=== PATIENT | male | born 1955 | race Caucasian/White ===

== ENCOUNTER 2018-12-01 17:53 | Inpatient (IN) ==
--- NOTE | 2018-12-01 18:15 | Emergency Department Note ---
Disposition Clinical Impression: Colitis, Elevated liver enzymes, Increased ammonia level Abdominal pain Qualifiers: Abdominal location: generalized Qualified Code(s): R10.84 - Generalized abdominal pain Disposition: Admitted As Inpatient Condition: Good [facility]: [facility]Primary Care Provider[facility] - Forms: ED Satisfaction Letter, Work/School Release Abdominal Pain HPI - General Chief Complaint: ED Abdominal Pain Stated Complaint: abd pain Time Seen by Provider: 12/01/18 18:12 Source: patient, EMS Nursing Notes Reviewed: Yes Vital Signs Reviewed: Yes - History of Present Illness HPI Narrative: 63-year-old male presents emergency department with concern for periumbilical to right upper quadrant abdominal pain starting at noon today. [facility] was [facility] at the [facility] CT scan of abdomen and pelvis which revealed inflammatory stranding within the fat in the right lower quadrant surrounding the ascending colon and expected location of the cecum. The terminal ileum was identified but the appendix was not. There is an area of gas and fluid collection measuring 5.7 x 4.8 x 6.2 cm at the expected location of the cecum and appendix. No free air was identified. Patient was sent here for further management. Patient states that the pain is not going anywhere. It is achy in nature. He has had episodes of vomiting associated with it. Patient is a chronic alcoholic. He does report been streaking 2 days ago. Patient also reports having nonbloody diarrhea today as well. He has had 3 episodes. Pain Scale: 0 - Related Data Home Medications Medication Instructions Recorded Confirmed Unable To Obtain [Unable to Obtain] 09/04/18 09/04/18 Allergies Allergy/AdvReac Type Severity Reaction Status Date / Time No Known Allergies Allergy Verified 09/04/18 01:30 All systems ED: reviewed and negative except as stated. Review of Systems: As Per HPI Constitutional: Denies: fever Cardiovascular: Denies: chest pain Respiratory: Denies: cough, dyspnea Gastrointestinal: Reports: abdominal pain, nausea, vomiting, diarrhea. Denies: melena, hematochezia Genitourinary: Denies: dysuria Musculoskeletal: Denies: back pain Abdominal Pain PMH - Past Medical History Medical history: Reports: COPD, diabetes, hyperlipidemia, hypertension Male Surgical History: Reports: herniorrhaphy, orthopedic, other, Tonsillectomy, other Psychiatric history: Reports: anxiety, depression - Social History Smoking status: Current some day smoker Alcohol use: Reports: recent Drug use: Reports: none Physical Exam - General Limitations: no limitations General appearance: alert - Head Head exam: normocephalic - Eye Eye exam: Present: EOMI. Absent: scleral icterus - ENT ENT exam: mucous membranes moist - Neck Neck exam: Present: trachea midline - Chest Chest inspection: Present: symmetric chest wall rise - Respiratory Respiratory exam: Present: normal lung sounds bilaterally. Absent: respiratory distress, accessory muscle use - Cardiovascular Cardiovascular exam: Present: normal rhythm, tachycardia, normal heart sounds - Abdominal Exam Abdominal exam: Present: soft, tenderness, rigidity. Absent: distention, guarding, rebound - Extremities Exam Extremities exam: Present: normal capillary refill - Back Exam Back exam: Present: full ROM - Neurological Exam Neurological exam: Present: alert, oriented X3 - Psychiatric Psychiatric exam: Present: normal affect, normal mood - Skin Skin exam: Present: warm, dry Course - Reevaluation(s) Reevaluation #1: Patient requesting further pain medication as well as nausea medication. Patient continues to be mildly tachycardic at 103. Patient with mildly elevated lactic acid. Patient will undergo further repeat lactate. Patient receiving further fluids. Patient will undergo admission for colitis. Repeat CT scan does not show any evidence of appendicitis or abscess. - Consultations Consultation #1: Discussed with Dr. Marie. Patient does have evidence of colitis. Patient does not have a specific hepatic panel that appears to have been ordered. This will be added. We will also had pneumonia. Patient does have a normal lipase, amylase, INR. Patient was placed on antibiotics. Patient continues to receive fluids. Patient will be admitted for further management of colitis. On follow-up of requested labs and addition of hepatic panel as it was not initially seen are documented in the chart does show an elevated bilirubin as well as an elevated ammonia level. Patient with previous care at the [facility] for cirrhosis. Lactulose given. There are no old labs for comparison. Patient's gallbladder on CT scan is normal and the patient's pain is lower abdominal pain around the level of the umbilicus and not related to right upper quadrant tenderness and does not have Chery sign. Consultation #2: Discussed with radiology in regards to not specifically addressing appendicitis. The patient does not have a visualized appendix on either CT scan. Patient does have significant colitis. With no significant weight dilated or inflamed appendix the patient does not have an acute appendicitis. Vital Signs Temperature 98.2 F 12/01/18 17:56 Pulse Rate 106 12/01/18 17:56 Respiratory Rate 16 12/01/18 17:56 Blood Pressure 165/90 12/01/18 17:56 O2 Sat by Pulse Oximetry 99 12/01/18 17:56 Temperature 98.2 F 12/01/18 17:56 Pulse Rate 101 12/01/18 22:22 Respiratory Rate 18 12/01/18 22:22 Blood Pressure 151/86 12/01/18 22:22 O2 Sat by Pulse Oximetry 98 12/01/18 22:22 Oxygen Delivery Oxygen Delivery Room Air Abdominal Pain - MDM Narrative Medical decision making narrative: 63-year-old male with concern for possibility of appendicitis, versus colitis, appendiceal abscess just emergency department from the [facility]. We are obtaining a CT scan of abdomen and pelvis with IV and oral contrast per request from radiologist. We are empirically giving Zosyn. Patient is elevated lactic acid of 2.3. We have given a liter of fluids as well. We have obtained blood cultures. Patient was given IV cefotaxime at the outside facility. Patient has elevated white blood cell count of 16.2. Hemoglobin 17.3. Troponin was negative. Creatinine function was normal at 1.07. GFR was greater than 60. No ischemic ST changes on the ECG. - Medical Records Medical records reviewed: Yes I reviewed the patient's medical records. - Lab Data Lab results reviewed: Yes I reviewed the patient's lab results. Lab Results 12/01/18 12/01/18 12/01/18 Range/Units 18:50 21:57 21:57 Lactic Acid 2.3 H (0.5-2.2) mmol/L Total Bilirubin 2.3 H (0.3-1.0) mg/dL Direct Bilirubin 0.5 H (0.0-0.2) mg/dL Indirect Bilirubin 1.8 H (0.0-1.2) mg/dL AST 21 (13-39) Units/L ALT 17 (7-52) Units/L Alkaline Phosphatase 52 (34-104) Units/L Ammonia 142 H (16-53) mcmol/L Serum Total Protein 6.2 L (6.4-8.9) g/dL Albumin 3.4 L (3.5-5.7) g/dL Globulin 2.8 (2.4-3.5) g/dL Albumin/Globulin Ratio 1.2 (1.1-2.2) 12/01/18 Range/Units 21:57 Lactic Acid 1.4 (0.5-2.2) mmol/L Total Bilirubin (0.3-1.0) mg/dL Direct Bilirubin (0.0-0.2) mg/dL Indirect Bilirubin (0.0-1.2) mg/dL AST (13-39) Units/L ALT (7-52) Units/L Alkaline Phosphatase (34-104) Units/L Ammonia (16-53) mcmol/L Serum Total Protein (6.4-8.9) g/dL Albumin (3.5-5.7) g/dL Globulin (2.4-3.5) g/dL Albumin/Globulin Ratio (1.1-2.2) - Radiology Data Radiology results reviewed: Yes I reviewed the patient's radiology results. Abdomen/Pelvis CT 12/01/18 20:45 IMPRESSION: 1. Generalized colonic wall edema and thickening with mild surrounding inflammatory change representing nonspecific colitis. 2. Cirrhosis with splenomegaly and features of portal hypertension. 3. Hepatic cyst or hemangioma. 4. Diverticulosis. 5. Prostatic enlargement. D/ / 12/01/2018 21:17:46 Curtis Frances MD / [email or web address] Interpreting Provider: Curtis Frances MD - EKG Data EKG attestation: Yes I reviewed and interpreted this EKG. EKG results narrative: 15:20 Ventricular rate 100 bpm, ME interval 148 ms, QRS church 78 ms, QT 390 ms, axis deviation. No ischemic ST changes noted on this electrical ECG. Attestation Statement - Attestation Attestation: Resident Attestation: I examined this patient and my medical decision making was reviewed with the Resident Physician. I agree with the documented findings, disposition and treatment plan as described except to the extent set forth below. We independently had [id number] contact with the patient. Patient presenting from the [facility] for evaluation of abnormal CAT scan of possible appendicitis with associated abscess. Patient states he was drinking over the weekend and thought he might have pancreatitis. Patient with initial labs drawn at the [facility]. Patient will require CT with IV and oral contrast further delineate. Patient's abdominal pain is right-sided in nature approximately periumbilical height. No associated rebound or guarding. Patient CT scan with significant colitis without abscess. Discussed with radiology and concern to previous CAT scan comparison and no appendix is visualized which makes this very unlikely. No associated abscess is been seen. Patient does have significant colitis. Given the elevated white count and continued tachycardia after a liter of fluids as well as mildly elevated lactic acid, the patient will be admitted for further management.
[2018-12-01] MEDS ORDERED: Piperacillin/Tazobactam 3.375 GM in Water for inj. (sterile) 20 ML 20 ML IVP ONE (18:24)
[2018-12-01] MEDS ORDERED: Isovue-370 500 ML BOTTLE IVP ONE (18:27)
[2018-12-01] MEDS ORDERED: Isovue-370 500 ML BOTTLE PO ONE (18:46)
[2018-12-01] MEDS ORDERED: 0.9 % Sodium Chloride 1,000 ML IVC ONE (20:43)
[2018-12-01] MEDS ORDERED: MORPHINE SUL Oral CONC 10 MG/0.5 ML ORAL.SYG SL PRN (21:40)
[2018-12-01] MEDS ORDERED: Ondansetron 4 MG/2 ML VIAL IVP ONE (21:41)
[2018-12-01 22:27] LABS: Albumin 3.4 g/dL (3.5-5.7); Albumin/Globulin Ratio 1.2 (1.1-2.2); Bilirubin,Direct 0.5 mg/dL (0.0-0.2); Bilirubin,Indirect 1.8 mg/dL (0.0-1.2); Bilirubin,Total 2.3 mg/dL (0.3-1.0); Globulin 2.8 g/dL (2.4-3.5); Total Protein 6.2 g/dL (6.4-8.9)
[2018-12-01] MEDS ORDERED: Lactulose Oral Soln 20 GM/30 ML UDC PO ONE (22:46)
[2018-12-02] MEDS ORDERED: *HR* LORazepam 2 MG/ML VIAL IVP PRN (03:18)
[2018-12-02] MEDS ORDERED: Naloxone 0.4 MG/ML INJ IVP PRN (03:18)
[2018-12-02] MEDS ORDERED: Ondansetron 4 MG/2 ML VIAL IVP PRN (03:18)
[2018-12-02] MEDS ORDERED: D5% in Water 1,000 ML IVC PRN (03:18)
[2018-12-02] MEDS ORDERED: traMADol 50 MG TABLET PO PRN (03:18)
[2018-12-02] MEDS ORDERED: *HR* Dextrose 50 % in Water (Syg) 50 ML SYRINGE IVP PRN (03:18)
[2018-12-02] MEDS ORDERED: Dextrose Gel 15 GM/37.5 ML TUBE PO PRN ×2 (03:18)
--- NOTE | 2018-12-02 04:03 | Internal Med History&Physical ---
Date of Encounter: 12/02/18 Time of Encounter: 02:25 Internal Medicine - H&P: HPI Chief complaint: abdominal pain Admitted From: Emergency Dept Plans for Post Hospital Care: Home History of present illness: Mr. Schultz is a 63 year old male who presents to the ER tonight from the [facility] for concerns of possible appendicitis. He was at work at the [facility] and went to the urgent care where he had a CAT scan performed after he had sudden onset abdominal pain. CAT scan there reportedly showed concerning findings for possible appendicitis. He therefore came to the ER to [place] for evaluation. Repeat CAT scan performed did not show any evidence of appendicitis, but he did have evidence of nonspecific colitis as well as cirrhosis with splenomegaly and portal hypertension. He was subsequently admitted to hospitalist service. Upon my assessment of the patient, patient has no complaints whatsoever. He is actually hungry and requesting food. He states the pain in his abdomen has subsided and has not recurred. He denies any nausea, vomiting, diarrhea, hematemesis, melena, or hematochezia. He denies any fevers, chills, or night sweats. Upon further questioning regarding his cirrhosis, he states has never been told or heard that he has cirrhosis. He states he is not surprised that he has cirrhosis as he has a history of heavy alcohol abuse for many years. Over last few years, however, he has minimized his alcohol intake. He does binge drink every other weekend, roughly twice a month, however. He last had significant alcohol intake this weekend where he drank almost 2 cases of beer. During the workweek and opposing weekends, he does not drink any alcohol whatsoever. When he was drinking heavily in the past, he states he used to drink an excess of a 12 pack to 24 pack of beer every day. Regarding his colitis, patient states he had a colonoscopy about a year ago, which was reportedly negative. He has never had EGD. He has never seen a GI specialist in the past. He denies any history of hepatitis B or hepatitis C. Unfortunately, his [facility] records are not available for review. Past Med Surg Social Fam HX - Past Medical History Attestation: Yes The following information was validated with the patient. Source: patient, obtained from family Medical history: COPD, diabetes, hyperlipidemia, hypertension Psychiatric history: anxiety, depression - Past Surgical History Surgical History: herniorrhaphy Additional surgical history: eye - Social History Smoking Status: Current some day smoker Smokeless Tobacco Status: No Alcohol use: recent Drug use: none Current living situation: Home, With Family Activity Level: Independent ambulation Recent Out of Country Travel Within the Last 8 Weeks: No - Family History Father Hx Family Cardiac Disorders: Yes Internal Medicine - H&P: Meds Glipizide 5 mg PO DAILY 12/02/18 [History] Losartan 50 mg PO QAM 12/02/18 [History] Prozac 20 mg PO DAILY 12/02/18 [History] metFORMIN 1,000 mg PO BID 12/02/18 [History] traZODone 100 mg PO HS 12/02/18 [History] Allergy/AdvReac Type Severity Reaction Status Date / Time No Known Allergies Allergy Verified 09/04/18 01:30 - Constitutional Constitutional: no chills, no fever(s), no night sweats - EENT Eyes: no blurry vision, no change in vision Ears: no ear pain, no tinnitus Nose, mouth and throat: no nasal congestion, no sinus pressure, no sore throat - Cardiovascular Cardiovascular ROS IM: no chest pain, no dyspnea - Respiratory Respiratory: no cough, no hemoptysis, no chest congestion, no excessive phlegm production, no change in phlegm color - Gastrointestinal Gastrointestinal: abdominal pain (resolved completely now), no diarrhea, no hematemesis, no hematochezia, no melena, no nausea, no vomiting - Genitourinary Genitourinary ROS male: no dysuria, no flank pain, no hematuria - Musculoskeletal Musculoskeletal ROS IM: no arthralgias, no back pain - Integumentary Integumentary IM: no rash, no jaundice - Neurological Neurological ROS: no disequilibrium, no dizziness, no weakness - Psychiatric Psychiatric: no anxiety, no depression - Endocrine Endocrine IM: no cold intolerance, no heat intolerance, no polydipsia, no polyphagia, no polyuria - Hematologic/Lymphatic Hematologic/Lymphatic: no easy bruising - Allergic/Immunologic Allergic/Immunologic: no wheezing, no GI upset with certain foods - Constitutional Vitals: Temp Pulse Resp BP Pulse Ox 98.7 F 82 17 147/78 98 12/02/18 01:28 12/02/18 01:28 12/02/18 01:28 12/02/18 01:28 12/02/18 01:28 General appearance: Present: cooperative, A&O X 3, pleasant, no acute distress, answers questions appropriately Exam: well appearing; in no acute distress - Head Head exam: Present: atraumatic, normal inspection - Eye Eye exam: Present: EOMI, PERRL. Absent: scleral icterus Pupils: Present: normal accommodation - ENT ENT exam: Present: mucous membranes dry, normal exam, normal oropharynx - Neck Neck exam general surgery: Present: full ROM, supple, trachea midline. Absent: lymphadenopathy, tenderness, nuchal rigidity, thyromegaly - Respiratory Respiratory exam: Present: CTAB. Absent: chest wall tenderness, rales, rhonchi, wheezes - Cardiovascular Cardiovascular exam: Present: distant heart sounds, RRR, +S1, +S2. Absent: diastolic murmur, systolic murmur - GI/Abdominal GI/Abdominal exam: Present: normal bowel sounds, soft. Absent: guarding, mass, rebound, tenderness - Extremities Exam Extremities exam: Present: full ROM, warm, radial pulses palpable and symmetrical. Absent: calf tenderness, pedal edema, tenderness - Back Exam Back exam: Present: normal inspection. Absent: CVA tenderness (L), CVA tenderness (R) - Neurological Exam Neurological exam: Present: alert, CN II-XII intact, oriented X3, no focal deficits, strengths equal and symetr throughout - Psychiatric Psychiatric exam: Present: normal affect, normal mood - Skin Skin exam: Present: dry, intact, warm Internal Med - H&P Results - Labs Labs: Liver Function 12/01/18 Range/Units 21:57 Total Bilirubin 2.3 H (0.3-1.0) mg/dL Direct Bilirubin 0.5 H (0.0-0.2) mg/dL AST 21 (13-39) Units/L ALT 17 (7-52) Units/L Alkaline Phosphatase 52 (34-104) Units/L Albumin 3.4 L (3.5-5.7) g/dL - Impressions ITS Impressions Abdomen/Pelvis CT 12/01/18 20:45 IMPRESSION: 1. Generalized colonic wall edema and thickening with mild surrounding inflammatory change representing nonspecific colitis. 2. Cirrhosis with splenomegaly and features of portal hypertension. 3. Hepatic cyst or hemangioma. 4. Diverticulosis. 5. Prostatic enlargement. D/ / 12/01/2018 21:17:46 Curtis Frances MD / [email or web address] Interpreting Provider: Curtis Frances MD - Diagnostic Studies CT scan - abdomen Status: image reviewed by me (Images viewed and report reviewed) - Assessment and Plan (1) Colitis Current Visit: Yes Status: Acute Assessment and plan: 1. Will order blood cultures and start antibiotics to cover GI jesica. 2. GI consult as he will need follow endoscopy once clinically improved. (2) Abdominal pain Current Visit: Yes Status: Acute Assessment and plan: 1. Resolved completely per patient. 2. Monitor clinically with serial exams; consult surgery if he develops any signs of surgical abdomen. At this time, however, his exam is benign. Qualifiers: Abdominal location: generalized Qualified Code(s): R10.84 - Generalized abdominal pain (3) Cirrhosis Current Visit: Yes Status: Acute Assessment and plan: 1. Will order hepatitis profile. 2. Long discussion with patient on the need to abstain from alcohol completely. 3. Consult GI to assist with work-up and tank terminal gauger follow up. 4. Will order CMP and PT/PTT to assess liver function. Qualifiers: Hepatic cirrhosis type: alcoholic cirrhosis Ascites presence: without ascites Qualified Code(s): K70.30 - Alcoholic cirrhosis of liver without ascites (4) Alcoholism Current Visit: Yes Status: Acute Assessment and plan: 1. Will place on CIWA protocol and monitor for possible withdrawal. 2. MVI/Thiamine/Folate ordered daily. 3. GI work-up as above. (5) DVT prophylaxis Current Visit: Yes Status: Acute Assessment and plan: 1. EPCD's.
[2018-12-02] MEDS: 0.9 % Sodium Chloride 1,000 ML IVC SCH ×2 (05:28→23:56)
[2018-12-02 06:16] LABS: Bilirubin,Urine Negative (Negative); Blood,Urine Negative (Negative); Clarity,Urine Clear (Clear); Color,Urine Dark Yellow (Yellow); Glucose,Urine (UA) 250 mg/dL (Normal); Ketones,Urine Negative (Negative); Leukocyte Esterase,Urine Negative (Negative); Nitrite,Urine Negative (Negative); PH,Urine 5.5 pH Units (5.0-8.0); Protein,Urine Negative (Neg-Trace); Specific Gravity,Urine > 1.030 (1.010-1.025); Urobilinogen,Urine Normal (Normal)
[2018-12-02 09:08] LABS: Red Cell Distribution Width 13.2 % (11.5-14.5)
[2018-12-02 09:10] LABS: Hematocrit 42.1 % (37.5-50.1); Hemoglobin 14.9 g/dL (12.9-16.9); Immature Platelets 3.2 % (1.1-6.1); Mean Corpuscular HGB Conc 35.4 g/dL (31.6-35.5); Mean Corpuscular Hemoglobin 36.1 pg (28.0-33.3); Mean Corpuscular Volume 101.9 fL (83.0-100.0); Mean Platelet Volume 10.3 fL (9.4-12.4); Red Blood Count 4.13 M/mcL (4.19-5.50)
[2018-12-02 09:18] LABS: INR 1.1; Prothrombin Time 12.3 Seconds (9.4-12.1)
[2018-12-02 09:20] LABS: Activated Partial Thrombo Time 28.3 Seconds (26.0-36.0)
[2018-12-02] MEDS: Insulin LISPRO 300 UNITS/3 ML VIAL SQ SCH ×3 (09:21→17:46)
[2018-12-02 09:29] LABS: Alanine Aminotransferase 17 Units/L (7-52); Albumin 3.4 g/dL (3.5-5.7); Albumin/Globulin Ratio 1.1 (1.1-2.2); Alkaline Phosphatase 58 Units/L (34-104); Amylase 43 Units/L (29-103); Aspartate Amino Transferase 21 Units/L (13-39); BUN/Creatinine Ratio 14 (6-26); Bilirubin,Total 2.2 mg/dL (0.3-1.0); Blood Urea Nitrogen 8 mg/dL (8-23); Calcium 8.8 mg/dL (8.6-10.3); Carbon Dioxide 26 mEq/L (23-29); Chloride 106 mEq/L (98-107); Globulin 3.1 g/dL (2.4-3.5); Glucose 108 mg/dL (70-105); Lipase 116 Units/L (11-82); Magnesium 1.8 mg/dL (1.6-2.6); Osmolality,Calculated 285 (280-300); Potassium 3.8 mEq/L (3.5-5.1); Sodium 138 mEq/L (136-145); Total Protein 6.5 g/dL (6.4-8.9); eGFR For Non-African Americans > 60 (> 60)
[2018-12-02] MEDS: Vitamin B Complex/Vit C/Vit E 1 EACH TABLET PO SCH (09:34)
[2018-12-02] MEDS: Thiamine (B-1) 100 MG TABLET PO SCH (09:34)
[2018-12-02] MEDS: Folic Acid 1 MG TABLET PO SCH (09:34)
[2018-12-02] MEDS: FLUoxetine 20 MG CAPSULE PO SCH (09:34)
[2018-12-02] MEDS: MetroNIDAZOLE 500 MG/100 ML 500 MG/100 ML BAG IVPB SCH ×2 (09:35→17:45)
[2018-12-02 09:49] LABS: Hepatitis B Surface Antigen Nonreactive (Nonreactive)
[2018-12-02 10:18] LABS: Hepatitis B Core IgM Nonreactive (Nonreactive); Hepatitis C Virus Antibody Nonreactive (Nonreactive)
[2018-12-02 10:20] LABS: Hepatitis A Antibody IgM Nonreactive (Nonreactive)
[2018-12-02 10:45] LABS: Platelet Count 87 K/mcL (140-400)
[2018-12-02 10:47] LABS: Lymphocytes # 1.6 K/mcL (0.6-4.6); Neutrophils # 5.4 K/mcL (1.6-8.9); Platelet Estimate Decreased (Normal)
[2018-12-02] MEDS: Lactulose Oral Soln 20 GM/30 ML UDC PO SCH ×2 (11:58→20:53)
--- NOTE | 2018-12-02 16:08 | Event Note ---
Date of Encounter: 12/02/18 Time of Encounter: 09:00 Patient was admitted by my colleague in this morning. I have seen and examined patient today during rounding. Patient denies abdominal pain. No fever. No nausea or vomiting. Patient has diarrhea yesterday but stopped today. Patient is mentally clear. - Patient has cirrhosis, will consider GI consult. Patient has high-level ammonia, will give lactulose. Check ammonia tomorrow morning - Continue Cipro and Flagyl for colitis - Continue monitor patient. - History of alcoholism, continue CIWA protocol.
--- NOTE | 2018-12-02 16:11 | Gastroenterology Consult Note ---
Date of Encounter: 12/02/18 Time of Encounter: 12:50 - Assessment and plan (1) Cirrhosis Current Visit: Yes Status: Acute Assessment and plan: MELD-Na 12, Child-Abdullahi class B, DF 10.5. Cirrhosis noted on CT A/P. Patient with history of heavy alcohol use. Complete liver workup (AFP, alpha-1 antitrypsin, DENISHA, ANCA, ceruloplasmin, F actin, ferritin, hepatitis profile, AMA, PT/INR). Check liver US. Complete EGD tomorrow to r/o esophagitis, gastritis, duodenitis, PUD, MW tear, or AVM.. Keep NPO at midnight. Lifestyle Changes: 1. Total abstinence from alcohol including social drinking. 2. No smoking. 3. Gradual loss of weight. 4. Drink at least 3 cups of coffee due to its antioxidant effects in the liver, it reduces risk of HCC and advance fibrosis. 5. If needed, use less than 2 g/day of Tylenol (in divided doses). 6. Vaccination for Hep A, B, Pneumococcus if not already received and yearly influenza vaccination by PCP. 7. Avoid NSAIDS as can cause kidney damage. 8. Avoid benzodiazepines and other sedatives such as anti-histamines, narcotics etc. as can cause encephalopathy or confusion. 9. Take a late carbohydrate meal supplement as it reduces glucose production from protein breakdown and thus improves nutrition. 10. In cirrhosis, statins are safe to use and also improve portal hypertension and decrease risk of HCC. 11. Screening: Hepatocellular cancer screening: US of liver and AFP every 6 months Qualifiers: Hepatic cirrhosis type: alcoholic cirrhosis Ascites presence: without ascites Qualified Code(s): K70.30 - Alcoholic cirrhosis of liver without ascites (2) Abdominal pain Current Visit: Yes Status: Acute Assessment and plan: CT A/P shows generalized colonic wall edema and thickening consistent with nonspecific colitis, cirrhosis, portal hypertension, hepatic cyst or hemangioma, diverticulosis. Pain has completely resolved. Continue pain control PRN. Qualifiers: Abdominal location: generalized Qualified Code(s): R10.84 - Generalized abdominal pain (3) Colitis Current Visit: Yes Status: Acute Assessment and plan: Plan for colonoscopy in 6-8 weeks as outpatient. Follow up with Dr. Hernandez in 4 weeks as outpatient. - Time Spent With Patient Total time spent is greater than 50% in coordination of care (as documented) at patient's floor/unit and/or counseling patient: GI History of Present Illness - Data of Consult Patient: new to practice Consult date: 12/02/18 Requesting Physician: Serafin Marie MD - Consult Narrative Reason for consult: Colitis, cirrhosis History of present illness: Mr. Schultz is a 63 year old male with PMHx of COPD, DM, HLD, HTN who presents from the [place] for concerns of appendicitis. He was at work at the [place] and went to the urgent care where he had a CAT scan performed after he had sudden onset abdominal pain. CT scan there reportedly showed concerning findings for possible appendicitis. CT A/P shows generalized colonic wall edema and thickening consistent with nonspecific colitis, cirrhosis, portal hypertension, hepatic cyst or hemangioma, diverticulosis. He states cirrhosis is a new diagnosis for him. He does repeat history of heavy alcohol drinking, but has decreased his alcohol intake over the past "couple of years". Procedures: Colonoscopy 1 year ago negative per patient report. NSAIDs: None Anticoagulation: None Past Med Surg Social Fam HX - Past Medical History Medical history: COPD, diabetes, hyperlipidemia, hypertension Psychiatric history: anxiety, depression - Past Surgical History Surgical History: herniorrhaphy Additional surgical history: eye - Social History Smoking Status: Current some day smoker Smokeless Tobacco Status: No Alcohol use: recent Drug use: none - Family History Father Hx Family Cardiac Disorders: Yes - Gastrointestinal Gastrointestinal: Present: as per HPI - Constitutional Constitutional: as per HPI - EENT Eyes: as per HPI Ears: Present: as per HPI Nose, mouth and throat: Present: as per HPI - Cardiovascular Cardiovascular ROS: Present: as per HPI - Respiratory Respiratory IM: Present: as per HPI - Genitourinary Genitourinary: Absent: change in color, Urinary frequency - Neurological ROS Neurological GI: Present: as per HPI - Hematologic/Lymphatic Hematologic/Lymphatic pediatric: Present: as per HPI - Musculoskeletal Musculoskeletal ROS GI: Present: as per HPI - Integumentary Integumentary GI: Present: as per HPI - Psychiatric ROS Psychiatric GI: Present: as per HPI - Endocrine Endocrine IM: Present: as per HPI - Constitutional Vitals: Temp Pulse Resp BP Pulse Ox 98.0 F 75 16 168/87 98 12/02/18 15:56 12/02/18 15:56 12/02/18 15:56 12/02/18 15:56 12/02/18 15:56 General appearance: Present: cooperative, A&O X 3, no acute distress, answers questions appropriately - Head Head exam: Present: atraumatic, normocephalic - Eye Eye exam: Present: normal appearance, sclera anicteric - ENT ENT exam: Present: mucous membranes moist - Neck Neck exam general surgery: Present: normal inspection, trachea midline - Respiratory Respiratory exam: Present: CTAB. Absent: rales, rhonchi - Cardiovascular Cardiovascular exam: Present: RRR, +S1, +S2 - GI/Abdominal GI/Abdominal exam: Present: soft, no peritoneal signs. Absent: distended, firm, guarding, tenderness - Rectal Rectal exam: Present: deferred - Extremities Exam Extremities exam: Present: warm - Neurological Exam Neurological exam: Present: no focal deficits - Psychiatric Psychiatric exam: Present: normal affect, normal mood - Skin Skin exam: Present: dry, intact, normal color, warm Results - Labs CBC & Chem 7: 12/02/18 08:43 12/02/18 08:43 Labs: Last Result Calcium 8.8 mg/dL (8.6-10.3) 12/02/18 08:43 Ferritin 118 ng/mL (20-250) 12/02/18 13:36 Entire Visit Hgb 14.9 g/dL (12.9-16.9) 12/02/18 08:43 Hct 42.1 % (37.5-50.1) 12/02/18 08:43 PT 12.3 Seconds (9.4-12.1) H 12/02/18 08:43 Ferritin 118 ng/mL (20-250) 12/02/18 13:36 Total Bilirubin 2.2 mg/dL (0.3-1.0) H 12/02/18 08:43 AST 21 Units/L (13-39) 12/02/18 08:43 ALT 17 Units/L (7-52) 12/02/18 08:43 Ammonia 142 mcmol/L (16-53) H 12/01/18 21:57 Amylase 43 Units/L (29-103) 12/02/18 08:43 Lipase 116 Units/L (11-82) H 12/02/18 08:43 - ABG ABG results: PT/INR, D-dimer PT 12.3 Seconds (9.4-12.1) H 12/02/18 08:43 - Impressions Impressions Abdomen/Pelvis CT 12/01/18 20:45 IMPRESSION: 1. Generalized colonic wall edema and thickening with mild surrounding inflammatory change representing nonspecific colitis. 2. Cirrhosis with splenomegaly and features of portal hypertension. 3. Hepatic cyst or hemangioma. 4. Diverticulosis. 5. Prostatic enlargement. D/ / 12/01/2018 21:17:46 Curtis Frances MD / maru Interpreting Provider: Curtis Frances MD Consult Discharge Plan - Plan [facility]errals: [facility] [Primary Care Provider[facility] -
--- NOTE | 2018-12-02 16:29 | Electrocardiograph Report ---
[place] [id number] Test Date: 2018-12-02 Pat Name: Jose Schultz Department: 114 Room: [facility] Gender: M Emergency Medicine Specialist: [place] : 1955 Requested By: Scott Lares Order Number: [id number] Reading MD: Josef Montero Measurements Intervals Industry Rate: 73 P: 8 NH: 157 QRS: -32 QRSD: 90 T: 16 QT: 421 QTc: 447 Interpretive Statements SINUS RHYTHM WITH SINUS ARRHYTHMIA MARKED LEFT AXIS DEVIATION Electronically Signed On 12-02-2018 16:27:22 EDT by Josef Montero
[2018-12-02] MEDS ORDERED: traZODone 50 MG TABLET PO SCH (21:00)
[2018-12-03] MEDS: MetroNIDAZOLE 500 MG/100 ML 500 MG/100 ML BAG IVPB SCH ×2 (00:23→08:08)
[2018-12-03 05:59] LABS: Basophils % 0.7 %; Eosinophils # 0.1 K/mcL (0.0-0.6); Hemoglobin 13.8 g/dL (12.9-16.9); Lymphocytes # 1.2 K/mcL (0.6-4.6); Lymphocytes % 26.9 %; Mean Corpuscular HGB Conc 35.4 g/dL (31.6-35.5); Mean Corpuscular Hemoglobin 35.8 pg (28.0-33.3); Mean Corpuscular Volume 101.3 fL (83.0-100.0); Mean Platelet Volume 10.1 fL (9.4-12.4); Monocytes # 0.7 K/mcL (0.0-1.3); Monocytes % 14.3 %; Neutrophils # 2.6 K/mcL (1.6-8.9); Platelet Count 74 K/mcL (140-400); Red Blood Count 3.85 M/mcL (4.19-5.50); Red Cell Distribution Width 13.2 % (11.5-14.5); Segmented Neutrophils % 56.1 %
[2018-12-03 06:18] LABS: BUN/Creatinine Ratio 10 (6-26); Blood Urea Nitrogen 6 mg/dL (8-23); Calcium 8.6 mg/dL (8.6-10.3); Carbon Dioxide 25 mEq/L (23-29); Chloride 108 mEq/L (98-107); Glucose 115 mg/dL (70-105); Osmolality,Calculated 289 (280-300); Potassium 3.8 mEq/L (3.5-5.1); Sodium 140 mEq/L (136-145); eGFR For Non-African Americans > 60 (> 60)
[2018-12-03] MEDS: Insulin LISPRO 300 UNITS/3 ML VIAL SQ SCH ×2 (07:42→11:29)
[2018-12-03] MEDS: Folic Acid 1 MG TABLET PO SCH (08:09)
[2018-12-03] MEDS: Vitamin B Complex/Vit C/Vit E 1 EACH TABLET PO SCH (08:09)
[2018-12-03] MEDS: FLUoxetine 20 MG CAPSULE PO SCH (08:09)
[2018-12-03] MEDS: Thiamine (B-1) 100 MG TABLET PO SCH (08:09)
[2018-12-03] MEDS: Lactulose Oral Soln 20 GM/30 ML UDC PO SCH (08:09)
[2018-12-03] MEDS ORDERED: *HR* Propofol 200 MG/20 ML VIAL IVP ONE ×2 (12:20→12:39)
[2018-12-03] MEDS ORDERED: Lidocaine -MPF 2% 2 ML VIAL ONE (12:21)
--- NOTE | 2018-12-03 12:43 | Anesthesia Evaluation PreOp ---
<LopezSharad Michael - Last Filed: 12/03/18 12:41> Date of Encounter: 12/03/18 Time of Encounter: 12:41 - Past History Planned Operation: EGD Cardiac History: HTN, Hyperlipidemia Pulmonary History: COPD FOOD PRODUCTS TESTER History: Other (currently on CIWA protocal, heavy ETOH hx.) Other Medical History: Hepatic (cirrhosis,), Diabetes Type II, Other Anesthesia History: No Prior Anesthetic Complications, Past Anesthesia Alcohol Use: recent Drug use: none Medications and Allergies Cholecalciferol (Vitamin D3) [Vitamin D] 1,000 unit PO DAILY 12/02/18 [History] Dextrose [Glucose] 16 gm PO AD PRN 12/02/18 [History] Disulfiram [Antabuse] 250 mg PO DAILY 12/02/18 [History] Famotidine [Heartburn Prevention] 20 mg PO DAILY 12/02/18 [History] Losartan Potassium [Cozaar] 100 mg PO DAILY 12/02/18 [History] Metformin HCl [Glucophage] 2,000 mg PO QAM 12/02/18 [History] Multivitamin [Daily Multiple Vitamin] 1 tab PO QAM 12/02/18 [History] Pravastatin Sodium [Pravachol] 20 mg PO HS 12/02/18 [History] Trazodone HCl 50 mg PO HS PRN 12/02/18 [History] glipiZIDE [Glipizide] 10 mg PO DAILY 12/02/18 [History] Allergy/AdvReac Type Severity Reaction Status Date / Time exenatide [From Byetta] Allergy Itching Verified 12/03/18 13:05 Anesthesia Results - Labs 12/03/18 05:46 12/03/18 05:46 Anesthesia Assess/Plan ASA Score: 3 Level of consciousness: Cooperative, Oriented Anesthetic Plan: General, MAC Monitoring Plan: Standard Monitors Recovery Plan: PACU <Julieta Tovar - Last Filed: 12/03/18 13:15> Date of Encounter: 12/03/18 - Past History Pulmonary History: Smoker Other Medical History: Hepatic (etoh cirrhosis,) Anesthesia History: Past Anesthesia - Meds/Allergy Pre-op Review Medications Reviewed: Yes Allergies Reviewed: Yes Beta Blockers on Current Med List: No Anesthesia Results - Labs 12/03/18 05:46 12/03/18 05:46 - Imaging EKG: report reviewed (Interpretive Statements SINUS RHYTHM WITH SINUS ARRHYTHMIA MARKED LEFT AXIS DEVIATION Electronically Signed On 12-02-2018 16:27:22 EDT by Josef Montero) Anesthesia Exam Vital Signs/O2 Sat, Most Current Temp Pulse Resp BP Pulse Ox 98.1 F 80 16 178/87 96 12/03/18 13:01 12/03/18 13:01 12/03/18 13:01 12/03/18 13:01 12/03/18 13:01 Weight: 81kg NPO (# of Hours): >8 - HEENT Pupil (Motor): Pupils equal, EOMI Mallampati: II Oral Opening: Greater than 3 - FOOD [employer]ODUCTS TESTER LOC: Oriented FO[employer] PRODUCTS TESTER Motor: Normal RUE, Normal LUE, Normal RLE, Normal LLE, Normal Face [employer]ODU[employer] TESTER Sensory: Normal: RUE, LUE, RLE, LLE, Face - Cardiac Rhythm: Regular - Pulmonary Breath Sounds: bilateral Clear Respiratory Effort: Symmetrical
--- NOTE | 2018-12-03 13:58 | Anesthesia Evaluation Post Op ---
Date of Encounter: 12/03/18 Time of Encounter: 13:57 - Vital Signs Vital Signs: see nursing notes - Lungs Lungs: Clear Ascult./Percussion - Airway Airway: Non-obstructed - Cardiovascular Regular Rate - Mental Status Mental Status: Asleep with brisk response to light stimulation - Pain Pain Scale: 0 Pain Scale used: Numeric (1 - 10) - Nausea Vomiting Nausea Vomiting: Not Present - Hydration Hydration: Tolerates oral liquids - Discharge PostOp Status: Transfer Patient to floor
[2018-12-03 14:22] VITALS: BP 140/81
--- NOTE | 2018-12-03 16:06 | Discharge Summary ---
- NOTES TO OUTPATIENT PROVIDER Notes to Outpatient Provider: 1. F/U with GI in 2wks. 2. New med, lactulose 20g bid, omeprazole 20mg daily. Orders not resulted at time of discharge: Pending orders 12/01/18 18:50 Culture,Blood [BC] Stat 12/02/18 13:06 AFP Tumor Marker Non- Routine DENISHA IgG MK rflx IFA Routine F-Actin IgG Reflex Sm Muscle Routine MPO/PR3 (ANCA) Antibodies Routine Mitochondrial M2 Antibody, IgG Routine 12/02/18 13:36 Isfib-2-Uoeldmfqatw Routine Ceruloplasmin Routine Date of Encounter: 12/03/18 Time of Encounter: 15:00 - Discharge Diagnosis (1) Abdominal pain Priority: Primary Status: Acute Qualifiers: Abdominal location: generalized Qualified Code(s): R10.84 - Generalized abd ominal pain (2) Colitis Priority: Primary Status: Acute (3) Cirrhosis Priority: Primary Status: Acute Qualifiers: Hepatic cirrhosis type: alcoholic cirrhosis Ascites presence: without ascites Qualified Code(s): K70.30 - Alcoholic cirrhosis of liver without ascites (4) Alcoholism Priority: Secondary Status: Acute (5) DVT prophylaxis Priority: Secondary Status: Acute Hospital course: Mr. Schultz is a 63 year old male presented to emergency room for abdominal pain. CT of abdomen has been done, which shows cirrhosis and colitis. Patient was placed on Cipro and Flagyl for colitis. Patient has elevated ammonia, he was treated with lactulose. GI consult saw patient and had EGD done. After EGD, patient feels fine. Patient's abdominal pain has resolved. His ammonia level trended down to close normal. Patient is mentally clear. Discussed with GI consult Dr. Hernandez, will DC patient home today and continue follow-up with GI as outpatient. I was seen and examined the patient today. Patient is awake alert, oriented 3, denies abdominal pain, No fever, vitals are stable. Labs reviewed. Ammonia level down from 142 to 78 today. Will DC patient home. Per GI recommendation, will prescribe omeprazole 20 mg by mouth daily. Patient will also continue antibiotic Cipro 250 mg twice a day to finish a 14 day course. No more Flagyl as patient is alcoholic, to avoid disulfiram reaction. Discharge discussed with: patient - Time Spent with Patient Total time spent providing and/or coordinating discharge services: 40 minutes Time spent: Greater than 30 minutes - Discharge Medications Prescriptions: New RX: Lactulose 20 gm PO BID 30 Days #60 udc Continue RX: Metformin HCl [Glucophage] 2,000 mg PO QAM RX: glipiZIDE [Glipizide] 10 mg PO DAILY RX: Trazodone HCl 50 mg PO HS PRN PRN Reason: Sleep RX: Losartan Potassium [Cozaar] 100 mg PO DAILY RX: Pravastatin Sodium [Pravachol] 20 mg PO HS RX: Multivitamin [Daily Multiple Vitamin] 1 tab PO QAM RX: Dextrose [Glucose] 16 gm PO AD PRN PRN Reason: BLOOD SUGAR < 60 RX: Famotidine [Heartburn Prevention] 20 mg PO DAILY RX: Disulfiram [Antabuse] 250 mg PO DAILY RX: Cholecalciferol (Vitamin D3) [Vitamin D3] 1,000 unit PO DAILY Home Medications: Cholecalciferol (Vitamin D3) [Vitamin D3] 1,000 unit PO DAILY 12/02/18 [History] Dextrose [Glucose] 16 gm PO AD PRN 12/02/18 [History] Disulfiram [Antabuse] 250 mg PO DAILY 12/02/18 [History] Famotidine [Heartburn Prevention] 20 mg PO DAILY 12/02/18 [History] Losartan Potassium [Cozaar] 100 mg PO DAILY 12/02/18 [History] Metformin HCl [Glucophage] 2,000 mg PO QAM 12/02/18 [History] Multivitamin [Daily Multiple Vitamin] 1 tab PO QAM 12/02/18 [History] Pravastatin Sodium [Pravachol] 20 mg PO HS 12/02/18 [History] Trazodone HCl 50 mg PO HS PRN 12/02/18 [History] glipiZIDE [Glipizide] 10 mg PO DAILY 12/02/18 [History] Ciprofloxacin HCl [Cipro] 250 mg PO BID 12 Days #24 tab 12/03/18 [Rx] Lactulose 20 gm PO BID 30 Days #60 udc 12/03/18 [Rx] Omeprazole 20 mg PO DAILY 30 Days #30 tab. 12/03/18 [Rx] Allergies/Adverse Reactions: Allergy/AdvReac Type Severity Reaction Status Date / Time exenatide [From Byetta] Allergy Itching Verified 12/03/18 13:05 Date of admission: 12/02/18 11:37 Primary care physician: PCP [facility] Consults: 12/02/18 03:18 Consult to Gastroenterology [CONS] Routine Consulting Provider: Gastroenterology Kelly Reason for Consult: colitis; new dx cirrhosis -- etoH Call Completed: No Discharging clinician: Berto Vasquez Anticipated date of discharge: 12/03/18 - Constitutional Vitals: Temp Pulse Resp BP Pulse Ox 98.6 F 89 18 140/81 97 12/03/18 14:21 12/03/18 14:21 12/03/18 14:21 12/03/18 14:21 12/03/18 14:21 General appearance: Present: cooperative, A&O X 3, pleasant, no acute distress, answers questions appropriately Exam: Pt is AAO x 3, in NAD HEENT: NC/AT, PERRL Neck: Supple, no JVD, no LAD Lungs: CTA b/l Heart: S1S2, RRR Abd: Soft, nontender, BS present Ext: ROM wnl, no pedal edema Neuro: No focal deficit - Patient Status Disposition: Home, Self-Care Condition: Good Functional capacity at discharge: independent ambulation Overall status at discharge: patient is back to baseline - Discharge Instructions [facility] Care Provider[facility] - - Diet and Activity Activity: increase activity as tolerated Diet: diabetic diet
== END 2018-12-03 17:25 | disposition home or self-care (01) | DRG 433 ==
LOC: 3NENU 17:53 → EMEROOARM 17:53 → 3NENU 12-02 00:55
PROVIDERS: ADMIT Family Medicine; ATTEND Family Medicine